=== PATIENT | male | born 1940 | race Caucasian/White ===

== ENCOUNTER 2016-06-15 02:57 | Emergency (ER) | payer OTHER ==
[2016-06-15 03:09] VITALS: RESP 16; TEMP 97.7
--- NOTE | 2016-06-15 03:22 | EDPHY ---
H & P Stated Complaint: confusion HPI/ROS: HPI CHIEF COMPLAINT: Increasing confusion, sleepy HISTORY OF PRESENT ILLNESS: this patient very pleasant 75-year-old male he does have significant past medical history for liver cirrhosis, he tells me it is from alcohol and ?hepatiti, he takes spironolactone Lasix and lactulose however the past few days he has missed multiple doses of this. His brought him into the emergency room here at 3:30 a.m. in the morning for increasing confusion and sleepiness. She is concerned that his liver may be acting up. He is a [facility] patient gets his healthcare [facility]. He denies having any vomiting, chest pain or shortness of breath he denies feeling ill he denies having a fever. He tells me really does not have any complaints. his and him tell me his abdomen is about the same size as it normally is he is not having any trouble breathing or chest pain. Past Medical History: liver cirrhosis, thrombocytopenia, aortic aneurysm, GERD , hypertension, obesity, diabetes, hyperlipidemia, history of hepatic encephalopathy, portal hypertension, beta thalassemia, anemia, Alcantara's esophagus, esophageal varices Social History: Lives locally, at bedside denies current use of drugs alcohol tobacco products Family History: noncontributory ROS REVIEW OF SYSTEMS: A comprehensive 10 point review of systems is otherwise negative aside from elements mentioned in the history of present illness. Exam Constitutional sleepy,triage nursing summary reviewed, vital signs reviewed, awake/alert. Eyes normal conjunctivae and sclera, EOMI, PERRLA. he is not jaundiced, he is not icteric HENT normal inspection, atraumatic, moist mucus membranes, no epistaxis, neck supple/ no meningismus, no raccoon eyes. Respiratory clear to auscultation bilaterally, normal breath sounds, no respiratory distress, no wheezing. Cardiovascular rate normal, regular rhythm, no murmur, no edema, distal pulses normal. Gastrointestinal abdomen is soft, distended, there is a positive fluid wave, nontender Genitourinary no CVA tenderness. Musculoskeletal asterixis present, no midline vertebral tenderness, full range of motion, no calf swelling, no tenderness of extremities, no meningismus , good pulses, neurovascularly intact. Skin pink, warm, & dry, no rash, skin atraumatic. Neurologic awake, alert and oriented x 3, AAOx3, moves all 4 extremities equally, motor intact, sensory intact, CN II-XII intact, normal cerebellar, normal vision, normal speech. Psychiatric normal mood/affect. Heme/Lymph/Immune no lymphadenopathy. Differential Diagnosis: includes but is not limited to in a particular order, hyper and no anemia, hepatic encephalopathy, dehydration, electrolyte abnormality, infection Medical Decision Making: this patient had an IV established will obtain blood work including ammonia level, will check electrolytes, he will be gently hydrated, will have an x-ray, EKG, most likely clinically given his sleepiness, confusion, miss of medications, asterixis on exam he is most likely encephalopathic from a high ammonia level. He is a [facility] patient he will require admission we have no beds here at this hospital I will talk to [facility] about transfer. The patient is hemodynamically stable no acute distress at this time. I have updated his at bedside. Re-evaluation: EKG interpretation by me on record in [employer] system. Impression Time of EKG 4:07 a.m., this is sinus rhythm rate of 87, do not appreciate acute ischemic changes specifically there is no ST elevation, ST segment depression, T -wave abnormality. Intervals are appropriate. 0503: Spoke with the hospitalist service at [facility]. I spoke specifically with Dr. Gay who agrees to admit this patient. I did update the family agreed for transfer. I did request this patient be transferred to [facility] as it is the closest [facility] facility however they were full and over capacity they referred me to [facility]. Family agrees for transfer. I would normally keep this patient here however the hospital is full and I am currently boarding multiple patients in the emergency room the safest thing for this patient is to be appropriately transferred to a medical facility that can treat his hepatic encephalopathy. At this time this patient is hemodynamically stable and stable for transport. He has been accepted at [facility]. Source: Patient - Personal History Current Tetanus/Diphtheria Vaccine: Yes Current Tetanus Diphtheria and Acellular Pertussis (TDAP): Yes - Medical/Surgical History Hx Asthma: No Hx Chronic Respiratory Disease: No Hx Diabetes: Yes Hx Cardiac Disease: Yes Hx Renal Disease: Yes Hx Cirrhosis: Yes Hx Alcoholism: No Hx HIV/AIDS: No Hx Splenectomy or Spleen Trauma: No - Social History Smoking Status: Never smoked Constitutional: Initial Vital Signs Temperature (C) 36.5 C 06/15/16 03:06 Heart Rate 87 06/15/16 03:06 Respiratory Rate 16 06/15/16 03:06 Blood Pressure 137/90 H 06/15/16 03:06 O2 Sat (%) 96 06/15/16 03:06 O2 Delivery Mode Room Air Allergies/Adverse Reactions: No Known Allergies Allergy (Unverified 06/15/16 03:03) Home Medications: Medication Instructions Recorded Atorvastatin Calcium 06/15/16 Fluorouracil 06/15/16 Glipizide 06/15/16 Lactulose 06/15/16 Lasix 06/15/16 Levothyroxine 06/15/16 Metformin HCl 06/15/16 Pantoprazole Sodium 06/15/16 Propranolol HCl 06/15/16 Protopic 06/15/16 Spironolactone 06/15/16 traZODone 06/15/16 Medical Decision Making - Data Points Laboratory Results: Laboratory Results 06/15/16 03:45 06/15/16 03:45 06/15/16 03:45 WBC 4.13 10^3/uL (3.80-9.50) RBC 5.40 10^6/uL (4.40-6.38) Hgb 11.6 L g/dL (13.7-17.5) Hct 35.9 L % (40.0-51.0) MCV 66.5 L fL (81.5-99.8) MCH 21.5 L pg (27.9-34.1) MCHC 32.3 L g/dL (32.4-36.7) RDW 19.6 H % (11.5-15.2) Plt Count 126 L 10^3/uL (150-400) MPV TNP Neut % (Auto) 73.4 % (39.3-74.2) Lymph % (Auto) 9.4 L % (15.0-45.0) Richardson % (Auto) 12.8 % (4.5-13.0) Eos % (Auto) 2.7 % (0.6-7.6) Baso % (Auto) 0.7 % (0.3-1.7) Nucleat RBC Rel Count 0.0 % (0.0-0.2) Absolute Neuts (auto) 3.03 10^3/uL (1.70-6.50) Absolute Lymphs (auto) 0.39 L 10^3/uL (1.00-3.00) Absolute Monos (auto) 0.53 10^3/uL (0.30-0.80) Absolute Eos (auto) 0.11 10^3/uL (0.03-0.40) Absolute Basos (auto) 0.03 10^3/uL (0.02-0.10) Absolute Nucleated RBC 0.00 10^3/uL (0-0.01) Immature Gran % 1.0 % (0.0-1.1) Immature Gran # 0.04 10^3/uL (0.00-0.10) Platelet Estimate DECREASED L (ADEQ) Large Platelets PRESENT H Polychromasia 1+ H Microcytic Cells 2+ H Tear Drop Cells 1+ H Elliptocytes 1+ H Smear Review By Pending PT 16.8 H SEC (12.0-15.0) INR 1.36 H (0.83-1.16) APTT 32.0 SEC (23.0-38.0) VBG Lactic Acid 4.2 H mmol/L (0.7-2.1) Sodium 138 mEq/L (134-144) Potassium 3.9 mEq/L (3.5-5.2) Chloride 99 mEq/L (97-110) Carbon Dioxide 26 mEq/l (22-31) Anion Gap 13 mEq/L (8-16) BUN 15 mg/dL (7-23) Creatinine 1.0 mg/dL (0.7-1.3) Estimated GFR > 60 Glucose 110 H mg/dL (70-100) Calcium 8.8 mg/dL (8.5-10.4) Total Bilirubin 2.2 H mg/dL (0.1-1.4) Conjugated Bilirubin 0.5 mg/dL (0.0-0.5) Unconjugated Bilirubin 1.7 H mg/dL (0.0-1.1) AST 52 IU/L (17-59) ALT 42 IU/L (21-72) Alkaline Phosphatase 149 H IU/L (38-126) Ammonia 56.0 H uMOL/L (9.0-30.0) Troponin I 0.015 ng/mL (0-0.034) Total Protein 6.7 g/dL (6.3-8.2) Albumin 3.4 L g/dL (3.5-5.0) Lipase 537.0 H IU/L (23-300) Medications Given: Discontinued Medications Sodium Chloride (Ns) 1,000 mls @ 0 mls/hr IV ONCE ONE PRN Reason: Wide Open Stop: 06/15/16 03:24 Last Admin: 06/15/16 03:30 Dose: 1,000 mls Lactulose (Cephulac) 20 gm PO EDNOW ONE Stop: 06/15/16 04:18 Last Admin: 06/15/16 04:25 Dose: 20 gm Departure - Departure Disposition: Acute Care Hospital Not [facility] Clinical Impression: Hepatic encephalopathy Condition: Fair
[2016-06-15] MEDS ORDERED: NS 1,000 ML IV ONE (03:23)
[2016-06-15 04:05] LABS: ABSOLUTE IMMATURE GRANULOCYTES 0.04 10^3/uL (0.00-0.10); ADD DIFF? NO; ADD MORPH? YES; ADD SCAN? NO; ATYPICAL LYMPHOCYTE FLAG 50 (0-99); FRAGMENT RBC FLAG 20 (0-99); HEMATOCRIT 35.9 % (40.0-51.0); HEMOGLOBIN 11.6 g/dL (13.7-17.5); LEFT SHIFT FLG 10 (0-99); LIPEMIA HEMOLYSIS FLAG 80 (0-99); MEAN CELL HEMOGLOBIN 21.5 pg (27.9-34.1); MEAN CELL HEMOGLOBIN CONCENTR. 32.3 g/dL (32.4-36.7); PLATELET CLUMPS FLAG 0 (0-99); PLATELET COUNT 126 10^3/uL (150-400); RED CELL DISTRIBUTION WIDTH 19.6 % (11.5-15.2)
[2016-06-15 04:07] LABS: MEAN CELL VOLUME 66.5 fL (81.5-99.8)
[2016-06-15 04:12] LABS: INR 1.36 (0.83-1.16); PROTIME(PATIENT) 16.8 SEC (12.0-15.0)
[2016-06-15] MEDS ORDERED: cefTRIAXone 2 GM in D5W 50 ML IV ONE (04:17)
[2016-06-15] MEDS ORDERED: LACTULOSE 20 GM/30 ML UDCUP PO ONE (04:17)
[2016-06-15 04:22] LABS: ALANINE AMINOTRANSFERASE 42 IU/L (21-72); ALBUMIN 3.4 g/dL (3.5-5.0); ALKALINE PHOSPHATASE 149 IU/L (38-126); ANION GAP 13 mEq/L (8-16); ASPARTATE AMINOTRANSFERASE 52 IU/L (17-59); BILIRUBIN,TOTAL 2.2 mg/dL (0.1-1.4); BILIRUBIN-CONJUGATED 0.5 mg/dL (0.0-0.5); BILIRUBIN-UNCONJUGATED 1.7 mg/dL (0.0-1.1); CALCIUM 8.8 mg/dL (8.5-10.4); CARBON DIOXIDE 26 mEq/l (22-31); CHLORIDE 99 mEq/L (97-110); GLOMERULAR FILTRATION RATE > 60; GLUCOSE 110 mg/dL (70-100); POTASSIUM 3.9 mEq/L (3.5-5.2); SODIUM 138 mEq/L (134-144); TOTAL PROTEIN 6.7 g/dL (6.3-8.2)
[2016-06-15 04:33] LABS: TROPONIN I 0.015 ng/mL (0-0.034)
[2016-06-15 04:40] LABS: PLATELET ESTIMATE DECREASED (ADEQ)
--- NOTE | 2016-06-15 04:46 | CPEKG ---
Heart Rate: 87 RR Interval: 690 P-R Interval: 192 QRSD Interval: 74 QT Interval: 400 QTC Interval: 482 P [place]: 40 QRS [place]: -32 T Wave [place]: 6 EKG Severity - ABNORMAL ECG - EKG Impression: SINUS RHYTHM EKG Impression: PROBABLE INFERIOR INFARCT, AGE INDETERMINATE EKG Impression: BORDERLINE PROLONGED QT INTERVAL Electronically Signed By: Casey Kruger 15-Jun-2016 05:16:56
[2016-06-15 04:47] LABS: ELLIPTOCYTES 1+; LARGE PLATELETS PRESENT; MICROCYTES 2+; POLYCHROMASIA 1+
[2016-06-15 06:11] VITALS: BP 116/74; PULSE 92; O2SAT 92
== END 2016-06-15 06:59 | disposition short-term general hospital (02) ==
DX: K72.90 Hepatic failure, unspecified without coma (principal); I10 Essential (primary) hypertension; E11.9 Type 2 diabetes mellitus without complications
CPT/HCPCS: 96365; J0696

== ENCOUNTER 2016-11-30 22:01 | Emergency (ER) | payer OTHER ==
[2016-11-30 22:13] VITALS: TEMP 98.1
--- NOTE | 2016-11-30 23:12 | EDPHY ---
H & P Stated Complaint: [facility] fall from standing; R shoulder, R wrist pain and head abrasions Time Seen by Provider: 11/30/16 22:28 HPI/ROS: HPI The patient presents after a fall which occurred just prior to arrival. Was moving recycling bins and went down 3 stairs to do this, he fell onto his right side. Did not lose consciousness. He did not have any preceding dizziness, lightheadedness, chest pain or shortness of breath. He landed on his right shoulder. He sustained multiple abrasions but his main complaint is right shoulder pain which is achy, worse with movement of his shoulder, has been constant, and is moderate in severity. He does not have any headache, vision changes, nausea, vomiting, changes in his behavior or changes in strength in his arms or legs. He has been able to walk independently since this happened. His last tetanus vaccine was 3 years ago. He is followed by [facility]. REVIEW OF SYSTEMS Constitutional: No fever, no chills. Eyes: No discharge. ENT: No sore throat. Cardiovascular: No chest pain, no palpitations. Respiratory: No cough, no shortness of breath. Gastrointestinal: No abdominal pain, no vomiting. Genitourinary: No hematuria. Musculoskeletal: No back pain. Skin: No rashes. Neurological: No headache. PMHx: Cirrhosis, upcoming heart operation at [facility] Hx: Lives at home with his PHYSICAL General Appearance: Alert, no distress Eyes: Pupils equal and round no pallor or injection ENT, Mouth: Mucous membranes moist Respiratory: There are no retractions, lungs are clear to auscultation Cardiovascular: Regular rate and rhythm , 2+ radial pulses Gastrointestinal: Abdomen is soft and non-tender, no masses, bowel sounds normal Neurological: A&O, sensation intact to light touch throughout arms Skin: Warm and dry, abrasion to superior scalp, to right hand, to right shoulder Musculoskeletal: Neck is supple, there is no posterior C-spine tenderness. Extremities: Limited range of motion of right shoulder secondary to pain, tender overlying the humeral head, Psychiatric: Patient is oriented X 3, there is no agitation Source: Patient Exam Limitations: No limitations - Personal History Current Tetanus/Diphtheria Vaccine: Yes Tetanus Vaccine Date: 2013 - Medical/Surgical History Hx Asthma: No Hx Chronic Respiratory Disease: No Hx Diabetes: Yes Hx Cardiac Disease: Yes Hx Renal Disease: Yes Hx Cirrhosis: Yes Hx Alcoholism: No Hx HIV/AIDS: No Hx Splenectomy or Spleen Trauma: No Other PMH: liver disease, upcoming heart valve replacement, kidney lesion - Social History Smoking Status: Never smoked Constitutional: Initial Vital Signs Temperature (C) 36.7 C 11/30/16 22:11 Heart Rate 77 11/30/16 22:11 Respiratory Rate 14 11/30/16 22:11 Blood Pressure 115/79 11/30/16 22:11 O2 Sat (%) 94 11/30/16 22:11 O2 Delivery Mode Room Air Allergies/Adverse Reactions: No Known Allergies Allergy (Unverified 06/15/16 03:03) Home Medications: Medication Instructions Recorded Atorvastatin Calcium 06/15/16 Lactulose 06/15/16 Lasix 06/15/16 Levothyroxine 06/15/16 Protopic 06/15/16 Spironolactone 06/15/16 traZODone 06/15/16 Medical Decision Making - Diagnostics Imaging Results: Imaging Impressions Shoulder X-Ray 11/30/16 22:27 Impression: Impacted fracture of right humeral head. Imaging: I viewed and interpreted images myself Differential Diagnosis: This is a 76-year-old man with cirrhosis, also upcoming heart operation for aortic stenosis, who presents brought from home with right shoulder pain after a mechanical fall which happened just prior to arrival. He has sustained scattered abrasions throughout his right side, however does not have any concern for other injury. He does have abrasions to his scalp, however did not hit his head when he fell and does not have any headache, vomiting, vision changes, behavioral change or neurologic deficit. Differential diagnosis includes shoulder fracture, shoulder dislocation, shoulder strain. The patient was placed in a sling in the emergency room. He had x-rays performed which did reveal impacted humeral head fracture. He is neurovascularly intact. He will need orthopedic follow-up for this. He is a [facility] patient and thus I have given him a copy of his x-rays and he will call his primary care doctor at [facility] tomorrow. Departure - Departure Disposition: Home, Routine, Self-Care Clinical Impression: Multiple abrasions Fracture of humeral head, right, closed Qualifiers: Encounter type: initial encounter Qualified Code(s): S42.291A - Other displaced fracture of upper end of right humerus, initial encounter for closed fracture Condition: Good Instructions: Proximal Humerus Fracture (ED) Additional Instructions: Please call the orthopedic doctor listed below to arrange for follow-up appointment in the next few days. You can use ice as needed for pain. Please leave the sling on at all times. Referrals: DIANNE SIMPSON [Primary Care Provider] - As per Instructions Derek Cano MD [Medical Doctor] - As per Instructions
[2016-12-01 00:14] VITALS: BP 97/69; PULSE 76; RESP 16; O2SAT 92
== END 2016-12-01 00:12 | disposition home or self-care (01) ==
DX: S42.291A Other displaced fracture of upper end of right humerus, initial encounter for closed fracture (principal); S00.01XA Abrasion of scalp, initial encounter; S40.211A Abrasion of right shoulder, initial encounter; S60.511A Abrasion of right hand, initial encounter; E11.9 Type 2 diabetes mellitus without complications; W18.39XA Other fall on same level, initial encounter